=== PATIENT | male | born 1965 | race Caucasian/White ===

== ENCOUNTER → 2023-12-16 15:14 | Outpatient (REF) | payer BC, SELFPAY | LOC: MRI 3T 15:14 | PROVIDERS: ATTENDING PHYSICIAN Internal Medicine | DX: M54.41 Lumbago with sciatica, right side (principal) | CPT/HCPCS: 72148 ==

== ENCOUNTER 2025-02-16 15:42 | Emergency (ER) | payer SELFPAY ==
[2025-02-16 15:45] VITALS: BP 148/95
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
== END 2025-02-16 16:53 | disposition home or self-care (01) ==
LOC: EMR 15:42
PROVIDERS: EMERGENCY PHYSICIAN Student in an Organized Health Care Education/Training Program; FAMILY PHYSICIAN Internal Medicine
DX: S90.222A Contusion of left lesser toe(s) with damage to nail, initial encounter (principal); M79.651 Pain in right thigh; M79.662 Pain in left lower leg; V03.90XA Pedestrian on foot injured in collision with car, pick-up truck or van, unspecified whether traffic or nontraffic accident, initial encounter; Y93.89 Activity, other specified
CPT/HCPCS: 99282